=== PATIENT | female | born 1995 | race Caucasian/White ===

== ENCOUNTER 2016-05-28 22:10 | Emergency (ER) | payer OTHER | END 2016-05-28 23:00 | disposition home or self-care (01) | LOC: FER 22:10 | DX: B34.9 Viral infection, unspecified (principal) | CPT/HCPCS: 87450; 87804; 87899; 99284 ==

== ENCOUNTER 2016-06-26 09:38 | Emergency (ER) | payer OTHER | END 2016-06-26 10:44 | disposition home or self-care (01) | LOC: FER 09:38 | DX: J06.9 Acute upper respiratory infection, unspecified (principal); Z98.890 Other specified postprocedural states | CPT/HCPCS: 87450; 87804; 87899; 99283 ==

== ENCOUNTER 2016-06-27 19:09 | Emergency (ER) | payer OTHER | END 2016-06-27 21:41 | disposition home or self-care (01) | LOC: FER 19:09 | DX: S46.911A Strain of unspecified muscle, fascia and tendon at shoulder and upper arm level, right arm, initial encounter (principal); S09.90XA Unspecified injury of head, initial encounter; R07.81 Pleurodynia; W17.89XA Other fall from one level to another, initial encounter; Y92.009 Unspecified place in unspecified non-institutional (private) residence as the place of occurrence of the external cause | CPT/HCPCS: 71020; 71100; 73000; 73030; J1885; J2800 ==

== ENCOUNTER 2016-09-03 11:34 | Emergency (ER) | payer OTHER | END 2016-09-03 13:11 | disposition home or self-care (01) | LOC: FER 11:34 | DX: R21 Rash and other nonspecific skin eruption (principal) | CPT/HCPCS: 99282 ==

== ENCOUNTER 2020-09-20 01:54 | Emergency (ER) | payer OTHER ==
[~2020-09-20 01:54] MED LIST: AMOXICILLIN500 MG PO; BENTYL10 MG PO; ONDANSETRON ODT4 MG PO; PHENERGAN25 M1 PO; SUDAFED 24-HOU240 MG PO; VOLTAREN **OUT50 MG PO; ZOFRAN4 MG SL
[2020-09-20] MEDS ORDERED: IBUPROFEN800 MG PO (04:58)
== END 2020-09-20 05:40 | disposition home or self-care (01) ==
LOC: FER 01:54
DX: S63.652A Sprain of metacarpophalangeal joint of right middle finger, initial encounter (principal); S60.221A Contusion of right hand, initial encounter; F17.200 Nicotine dependence, unspecified, uncomplicated; W23.1XXA Caught, crushed, jammed, or pinched between stationary objects, initial encounter
CPT/HCPCS: 73130

== ENCOUNTER 2021-04-12 23:39 | Emergency (ER) | payer OTHER ==
[~2021-04-12 23:39] MED LIST changes: +IBUPROFEN800 MG PO
[2021-04-13 03:44] LABS: CORONAVIRUS 2019 SARS-COV-2 NEGATIVE (NEGATIVE); INFLUENZA A NAA POSITIVE (NEGATIVE)
[2021-04-13 04:05] LABS: BASOPHIL 0 % (0-2); EOSINOPHIL 0.1 % (0-5); HCT 37.2 % (37.0-47.0); HGB 12.6 g/dl (12.5-16.0); MCH 28.3 pg (25.0-31.0); MCHC 33.9 g/dL (32.0-36.0); MCV 83.4 fL (78.0-100.0); MONOCYTE 9.2 % (0-12); MPV 8.6 fL (6.0-9.5); NEUTROPHIL 78.3 % (41-80); NRBC 0; PLT 223 K/uL (150-400); RBC 4.46 M/uL (4.20-5.40); WBC 7.7 K/uL (4.0-10.5)
[2021-04-13 04:25] LABS: BUN/CREAT RATIO (CALC) 12.9 RATIO; CREATININE 0.7 mg/dL (0.51-0.95); POTASSIUM 3.5 mmol/L (3.5-5.1)
[2021-04-13] MEDS ORDERED: ONDANSETRON ODT4 MG PO (05:20)
== END 2021-04-13 06:37 | disposition home or self-care (01) ==
LOC: FER 23:39
PROVIDERS: Internal Medicine
DX: J10.2 Influenza due to other identified influenza virus with gastrointestinal manifestations (principal); F17.210 Nicotine dependence, cigarettes, uncomplicated; Z20.822 Contact with and (suspected) exposure to COVID-19
CPT/HCPCS: 36415; 80048; 84145; 85025; 99283; J1885; J7040; U0002